=== PATIENT | female | born 1955 | race Caucasian/White ===

== ENCOUNTER 2017-02-13 07:17 | Emergency (ER) | payer MEDICAID, OTHER ==
[~2017-02-13] VITALS: Ht 165.1 cm; Wt 83.0 kg
[~2017-02-13 07:17] MED LIST: ALBU8.5H2 IH; ALEN70TA3 PO; ANAS1TAB PO; BECL8.7A6 INH
--- NOTE | 2017-02-13 07:20 | NUR ---
AAOX3, BIB DAUGHTER C/O HTN AND STIFF NECK WHEN SHE WOKE UP THIS AM, NQD=125E. TOOK AMLODIPINE 10MG THIS AM. CURRENT LW=135/68. RESP IS EVEN AND UNLABORED WITH NAD NOTED. SKIN IS WARM AND DRY. AWAITING MD FOR EVAL.
--- NOTE | 2017-02-13 07:32 | NUR ---
MD AVALOS AT BEDSIDE FOR EVALUATION
[2017-02-13] MEDS ORDERED: LORAZEPAM 1 MG TABLET ONE (07:40)
--- NOTE | 2017-02-13 07:45 | NUR ---
MEDICATED PT ORDERED
--- NOTE | 2017-02-13 07:59 | NUR ---
XRAY AT BEDSIDE
[2017-02-13] MEDS ORDERED: LORAZEPAM 1 MG TABLET PO ONE (08:00)
[2017-02-13 08:01] LABS: BASOPHILS % (AUTO) 1.1 % (0.0-2.0); EOSINOPHILS # (AUTO) 0.2 /CMM (0.0-0.7); EOSINOPHILS % (AUTO) 4.2 % (0.0-6.0); HEMATOCRIT 37 % (33-45); HEMOGLOBIN 12.4 g/dL (11.5-14.8); LYMPHOCYTES # (AUTO) 1.8 /CMM (0.8-4.8); LYMPHOCYTES % (AUTO) 39.9 % (20.0-44.0); MEAN CORPUSCULAR HEMOGLOBIN 28 PG (26.0-33.0); MEAN CORPUSCULAR HGB CONC 33 g/dl (31.0-36.0); MEAN CORPUSCULAR VOLUME 85 fL (82-100); MONOCYTES # (AUTO) 0.2 /CMM (0.1-1.30); MONOCYTES % (AUTO) 5.3 % (2.0-12.0); NEUTROPHILS # (AUTO) 2.2 /CMM (1.8-8.9); NEUTROPHILS % (AUTO) 49.5 % (43.0-81.0); PLATELET COUNT (AUTO) 153 /CMM (150-450); RDW COEFFICIENT OF VARIATION 13.3 (11.5-15.0); RED BLOOD CELL COUNT(AUTO) 4.37 MIL/uL (4.0-5.2); WHITE BLOOD COUNT (AUTO) 4.4 K/uL (4.3-11.0)
[2017-02-13 08:11] LABS: CARBON DIOXIDE 25 mmol/L (21-32); CHLORIDE 105 mmol/L (98-107); CREATININE 0.7 mg/dL (0.6-1.3); GFR 84 mL/min (>60); GLUCOSE 120 mg/dL (74-106); POTASSIUM 4.1 mmol/L (3.5-5.1); SODIUM SERUM 140 mmol/L (136-145); UREA NITROGEN, BLOOD 14 mg/dL (7-18)
[2017-02-13 08:31] LABS: TROPONIN I < 0.017 ng/mL (0.00-0.056)
[2017-02-13 08:50] VITALS: BP 132/62
--- NOTE | 2017-02-13 08:50 | NUR ---
Patient discharged to home in stable condition. Written and verbal after care instructions given. Patient verbalizes understanding of instruction. Ambulatory with a steady gait. NAD. VS WNL.
== END 2017-02-13 08:51 | disposition home or self-care (01) ==
LOC: ER 07:19
DX: I10 Essential (primary) hypertension (principal); F41.9 Anxiety disorder, unspecified; J45.909 Unspecified asthma, uncomplicated; E03.9 Hypothyroidism, unspecified; Z79.899 Other long term (current) drug therapy
CPT/HCPCS: 36415; 71010; 80048; 84484; 85025; 93005; 99285; A4606; Z7610

== ENCOUNTER 2017-02-26 22:51 | Emergency (ER) | payer MEDICAID ==
[~2017-02-26] VITALS: Ht 167.6 cm; Wt 81.6 kg
--- NOTE | 2017-02-26 23:00 | NUR ---
To bed 6 a 62 yo female bibfamily with c/o palpitation and nausea 1 hour [employer]. Received patient aaox4, ambulatory. No s/s of acute distress. Breathing even and unlabored. Skin warm and dry to touch. VSS. Awaiting for er md paez.
--- NOTE | 2017-02-26 23:13 | NUR ---
Dr Bernard at bedside.
--- NOTE | 2017-02-26 23:30 | NUR ---
Patient discharged to home in stable condition. Written and verbal after care instructions given. Patient verbalizes understanding of instruction. Patient is ambulatory with steady gait.
[2017-02-26 23:33] VITALS: BP 148/68
== END 2017-02-26 23:30 | disposition home or self-care (01) ==
LOC: ER 22:54
DX: T38.1X1A Poisoning by thyroid hormones and substitutes, accidental (unintentional), initial encounter (principal); E03.9 Hypothyroidism, unspecified; I10 Essential (primary) hypertension; F41.9 Anxiety disorder, unspecified; Z85.3 Personal history of malignant neoplasm of breast; Y92.89 Other specified places as the place of occurrence of the external cause
CPT/HCPCS: 99284; A4606; Z7610